=== PATIENT | male | born 1975 | race Caucasian/White ===

== ENCOUNTER 2017-04-06 10:24 | Emergency (ER) | payer BC ==
[~2017-04-06] VITALS: Ht 180.3 cm; Wt 99.8 kg
--- NOTE | 2017-04-06 11:59 | Diagnostic Imaging Report ---
EXAMINATION: PA and lateral views of the chest. COMPARISON: None CLINICAL HISTORY: Shortness of breath, flu DISCUSSION: Lines/tubes: None. Lungs: The lungs are well inflated and clear. No pneumonia or pulmonary edema. Pleura: There is no pleural effusion or pneumothorax. Heart and mediastinum: The cardiomediastinal silhouette is normal. Bones and soft tissues: No acute bony abnormalities. IMPRESSION: No acute cardiopulmonary abnormalities. Signed by: Dr. Solomon Garnica M.D. on 04/06/2017 11:56 AM
[2017-04-06] MEDS ORDERED: LISINOPRIL 20 MG TAB PO ONE (12:45)
== END 2017-04-06 12:40 | disposition home or self-care (01) ==
LOC: ER 10:24
DX: R05 Cough (principal); J20.8 Acute bronchitis due to other specified organisms; I10 Essential (primary) hypertension
CPT/HCPCS: 71046; 99283